=== PATIENT | male | born 1970 | race Caucasian/White ===

== ENCOUNTER 2016-07-21 02:27 | Emergency (ER) | payer OTHER ==
[2016-07-21] MEDS ORDERED: IBUPROFEN 800 MG TABLET ONE (03:23)
[2016-07-21] MEDS ORDERED: OXYCODONE/ACETAMINOPHEN 5/325 MG TABLET ONE (03:24)
[2016-07-21] MEDS ORDERED: DIAZEPAM 5 MG TABLET ONE (03:24)
== END 2016-07-21 03:38 | disposition home or self-care (01) ==
LOC: ED 02:27
DX: M54.32 Sciatica, left side (principal); Z87.891 Personal history of nicotine dependence; X50.0XXA Overexertion from strenuous movement or load, initial encounter; Y93.01 Activity, walking, marching and hiking
CPT/HCPCS: 99282; 99283; A9270